=== PATIENT | male | born 1965 | race Two or more races ===

== ENCOUNTER 2016-09-16 14:00 | Inpatient (IN) | payer MEDICARE, MEDICAID ==
[~2016-09-16] VITALS: Ht 177.8 cm; Wt 75.2 kg
--- NOTE | ~2016-09-16 | PN ---
PATIENT'S NAME: DELORES JASMINE [facility] AGE: 51 Y [address] ROOM: [place] [address] LOCATION: [facility] [place] ADMIT DATE: 09/23/2016 Progress Notes DISCHARGE DATE: FAMILY PHYSICIAN: Shahab Corrales MD ATTENDING PHYSICIAN: Segundo Yadav DATE OF SERVICE: 09/27/2016 This patient had a robotic abdominoperineal resection for rectal carcinoma. He is doing fairly well. His drainage has been minimal. He accidentally pulled out his Isabel again, attempts to reinsert it with a coude were unsuccessful. Urology was consulted, and they will do a cystoscopy with insertion of the catheter at this point. He was on a soft diet, and he did not do terribly well, and I told him to stay on liquids until he felt better. His ostomy shows some superficial ischemia, but deep tissues look fine. He is passing gas through, yet not a lot of stool. His abdomen is otherwise unremarkable. LABORATORY VALUES: Electrolytes are satisfactory. White count is still elevated, but less so, 18,000; hematocrit is 43. PLAN: Plan is to allow him to get functional peristalsis, watch his white count, and today, to have Urology do cystoscopy and replacement of his Isabel catheter, which is now going to be placed the third time. MD ANTWON ALBRECHT/ema /[id number] d: 09/27/16 1300 t: 10/03/16 1818, PROGRESS NOTES
--- NOTE | ~2016-09-16 | DS ---
PATIENT'S NAME: DELORES MORROW [facility] AGE: 51 Y [address] ROOM: [address] [address] [place] [facility] [place] DATE: 09/23/2016 Discharge Summary DISCHARGE DATE: 10/01/2016 FAMILY PHYSICIAN: Shahab Corrales MD ATTENDING PHYSICIAN: Segundo Yadav DIAGNOSES: 1. Stage I rectal cancer, T2 N0. 2. Urinary retention. 3. Allergic reaction from Levaquin, which caused a rash. SUMMARY: Delores Morrow is a 51-year-old male, who was seen by Dr. Yadav on August 13, 2016, after he had a colonoscopy that revealed a very low rectal tumor. Pathology revealed moderately differentiated colonic adenocarcinoma. Dr. Ydaav discussed surgical treatment options along with further testing for staging purposes. The patient followed up on September 10, 2016, after a CT chest, abdomen, and pelvis revealed no evidence of metastatic disease. MRI of the pelvis revealed no perirectal adenopathy with an intact muscularis mucosa and no abnormalities in the perirectal fat. Again, Dr. Yadav discussed surgical treatment options including a low anterior resection along with a laparoscopic versus robotic abdominoperineal resection. Risks, benefits, and alternatives were thoroughly discussed. The patient decided that he wanted to proceed with the robotic APR. Apparently, he has a family member with colostomy, and he thought that he would do fine with this. The patient underwent a mechanical and antibiotic bowel prep preoperatively. He presented on the morning of September 23 for the procedure. A 2 units of blood was typed and crossed preoperatively. Mefoxin 2 g IV was ordered preoperatively. The patient was taken to the operating room where a robotic abdominoperineal resection was completed. Please see Dr. Yadav's procedure note for specifics. Postoperatively, activity was allowed as tolerated. Urine output was monitored closely. Isabel was placed to dependent drainage. Lovenox was ordered for DVT prophylaxis. Mefoxin 1 g IV q.8 hours x18 hours was ordered. Dilaudid BEAD BUILDER and IV acetaminophen was ordered for pain control. He continued his home medicines of Elavil, Adderall, and Seroquel. On postop day #1, the patient was quite cantankerous. His white blood cell count was 18.0, hemoglobin 13.7. BEAD BUILDER was switched to demand only. He was started on [place]. Clear liquids were initiated. Pulmonary toiletry was encouraged. Wound ostomy continence nurse had been consulted preoperatively and they continued postoperatively with teaching. Later that day, the patient's BEAD BUILDER was completely stopped. Isabel catheter was removed, and he was advanced to a full liquid diet. On postop day #2, the patient was feeling well. White blood cell count was 20.6. He continued on full liquids. IV was saline locked. Isabel catheter had been replaced due to urinary retention. On postop day #3, white blood cell count remained at 21.9. He was afebrile. His stoma was dark but viable. He was advanced to a regular diet. The patient pulled his Isabel PATIENT'S NAME: DELORES MORROW [facility] AGE: 51 Y [address] ROOM: [place] [address] [place] [facility] [place] DATE: 09/23/2016 Discharge Summary DISCHARGE DATE: 10/01/2016 FAMILY PHYSICIAN: Shahab Corrales MD ATTENDING PHYSICIAN: Segundo Yadav catheter out himself on September 29. Dr. Oconnell was consulted and there was some difficulty replacing the Isabel. The patient subsequently had to go to the operating room for cystoscopy with replacement of the Isabel. Levaquin 500 mg IV preop was given. He subsequently developed a rash from this a couple days later. On September 29, the patient overall seemed to be improving. His white blood cell count was down to 15.9. A CT scan of the abdomen and pelvis had been obtained due to his elevated white count and the dusky stoma. This showed no free fluid, no abscess or complications. There was some patchy bilateral lung consolidation noted, also some constipation was noted. Benadryl was ordered for the rash, milk of magnesia was ordered for the constipation. On postop day #7, the patient was in good spirits. He was tolerating diet. He had changed his own colostomy appliance. His RAFAELA drain was removed. The patient and were instructed on Isabel catheter care with anticipation of him going home with it. On postop day #8, the patient was in good spirits. He was ready to go home. He had no new concerns. He was tolerating diet. He had stool out of his colostomy. Evaluation of the perineum did show that a couple sutures at the inferior aspect had pulled out and some, the remainder was intact. DISCHARGE INSTRUCTIONS: Included no restrictions on diet, no heavy lifting. He is to follow up with Dr. Yadav on October 03 at 9:45 a.m. for Isabel catheter removal. He was instructed to keep the perineum incision clean and dry, although he can shower allowing soap and water to run past the wound; he can cover as needed. I discussed with him that he may notice some drainage from the area that and that this should heal with time. Isabel care as directed. Colostomy care as directed. DISCHARGE MEDICATIONS: Include, 1. Elavil 75 mg p.o. at bedtime. 2. Prilosec 20 mg p.o. daily. 3. Seroquel 50 mg p.o. at bedtime. 4. Ultram 50 mg every 6 hours p.r.n. pain. 5. Adderall XR 30 mg p.o. daily. 6. Multivitamin 1 tablet p.o. daily. 7. Benadryl 25 to 50 mg p.o. q.6 hours as needed for itching. 8. A prescription was written for [place] 5/325 one to two p.o. q.4 hours p.r.n. pain, dispensing 30 with no refills. Final pathology results show rectal adenocarcinoma grade 2 of 3 with no metastatic carcinoma in 15 perirectal and pericolic lymph nodes. The patient will need a colonoscopy in 1 year. For specifics on day-to-day care, please refer to the hospital chart. PATIENT'S NAME: DELORES MORROW [facility] AGE: 51 Y [address] ROOM: [place] [address] [place] [facility] [place] DATE: 09/23/2016 Discharge Summary DISCHARGE DATE: 10/01/2016 FAMILY PHYSICIAN: Shahab Corrales MD ATTENDING PHYSICIAN: Segundo Yadav MATTI ARECHIGA PA-C FOR MD PANTERA NAVARROK/modl /[id number] d: 10/02/16 0427 t: 10/11/16 1454, DISCHARGE SUMMARY
--- NOTE | ~2016-09-16 | PN ---
PATIENT'S NAME: DELORES JASMINE [facility] AGE: 51 Y [address] ROOM: [place] [address] LOCATION: [facility] [place] ADMIT DATE: 09/23/2016 Progress Notes DISCHARGE DATE: FAMILY PHYSICIAN: Shahab Corrales MD ATTENDING PHYSICIAN: Segundo Yadav DATE OF SERVICE: 09/28/2016 HISTORY OF PRESENT ILLNESS: This is a patient with rectal carcinoma who had an abdominoperineal resection. He has a Pascual-Ferrer drain, which has not been draining a great deal. His ostomy is reasonable. He has some slight mucosal sloughing. He pulled out his Isabel for the second time. It was attempted to be reinserted with a coude and required the urologist to do a cystoscopy and insertion. I have spoken with the urologist and he says to keep the Isabel in for 1 week. He is on no antibiotics. He is eating fairly well. There is no large amount of stool, but gas in his ostomy. Of concern is the fact that his white count has remained elevated now at 21.3. He has a left shift. His electrolytes otherwise are unremarkable. Certainly, this elevation could have been contributed to by the manipulation yesterday in his genitourinary tract, but I feel that most probably tomorrow, he should receive a CAT scan of the abdomen and pelvis. I will relay this to Dr. Yadav. MD ANTWON ALBRECHT/ema /[id number] d: t: 09/29/16 1132, PROGRESS NOTES
--- NOTE | ~2016-09-16 | CON ---
[facility] 51 [facility] [address] ROOM: [place] [address] [place] [facility] [place]: 09/23/2016 Consultation DISCHARGE DATE: FAMILY PHYSICIAN: Shahab Corrales MD ATTENDING PHYSICIAN: Segundo Yadav DATE OF CONSULTATION: 09/27/2016 REFERRING PHYSICIAN: Delmer MORALES MD REASON FOR CONSULTATION: Urethral trauma secondary to patient pulling a Isabel catheter out and staff unable to replace catheter and the patient has urethral bleeding. The patient has status post abdominoperineal resection for rectal carcinoma. PAST MEDICAL HISTORY: ADHD. PAST SURGERY: Colonoscopy in his recent abdominoperineal resection. MEDICATIONS: At admission are: 1. Adderall. 2. Amitriptyline. 3. Antioxidants. 4. Omeprazole. 5. Seroquel. 6. Ultram. ALLERGIES: NONE. SOCIAL HISTORY: The patient is a long-time smoker. PHYSICAL EXAMINATION: GENERAL: A 51-year-old male, in no acute distress. EYES: Extraocular motion intact. EARS, NOSE, MOUTH, THROAT: No nasal or ear drainage noted. LUNGS: No respiratory distress. ABDOMEN: Benign with colostomy site. : Circumcised. Normal phallus and glans. There is some blood at the meatus. The groin area was prepped and draped in normal sterile fashion. I injected [facility]GE: 51 Y [address] ROOM: [place] [address] [place] [facility] [place]: 09/23/2016 Consultation DISCHARGE DATE: FAMILY PHYSICIAN: Shahab Corrales MD ATTENDING PHYSICIAN: Segundo Yadav lidocaine gel into the urethra. I then attempted to pass a 16-Estonian Isabel catheter and then I tried a coude catheter. It appeared to get stuck right around the bladder neck area. IMPRESSION: Urethral trauma. PLAN: Will require a cystoscopy for a catheter placement. The patient just ate, so we will have to delay the procedure until later time. MD MARY BETH CEJA/ema /[id number] d: 09/27/16 1131 t: 10/13/16 1915, CONSULTATION REPORT
--- NOTE | ~2016-09-16 | OR ---
PATIENT'S NAME: DELORES JASMINE [facility] AGE: 51 Y [address] ROOM: [address] [address] [place] [facility] [place]: 09/23/2016 OR/Procedure Report DISCHARGE DATE: FAMILY PHYSICIAN: Shahab Corrales MD ATTENDING PHYSICIAN: Segundo Yadav SURGEON: Segundo Yadav MD RADIATION THERAPY TECHNICIAN: Nona Tirado PA-C. DATE OF PROCEDURE: 09/23/2016 PREOPERATIVE DIAGNOSIS: Rectal cancer. POSTOPERATIVE DIAGNOSIS: Rectal cancer. PROCEDURE: Robotic-assisted abdominoperineal resection. FINDINGS: Tumor was seemed to be only within in lumen of the colon. There did not appear to be gross invasion on surrounding structures. ESTIMATED BLOOD LOSS: 10 mL. COMPLICATIONS: None. INDICATIONS: The patient is a 51-year-old male who had a rectal cancer. We discussed various options with the patient both LAR as well as APR and ultimately he had a cousin who had had an abdominal perineal resection and did well with this. He did not want to risk any potential complications of an anastomosis. The risks, benefits, and alternatives were discussed with the patient. Ultimately, he elected to proceed. DESCRIPTION OF PROCEDURE: The patient was taken to the operating room. He was placed supine, given IV sedation, and subsequently intubated. His abdomen and perineum were prepped with ChloraPrep as well as Betadine on the peritoneum and sterilely draped. Preoperatively, the anus was closed with a pursestring suture. A transverse incision was created just superior to the umbilicus. The abdomen was elevated, a Veress needle was inserted, and pneumoperitoneum was induced. Following this, an 8-mm robotic trocar was inserted followed by insertion of the camera. There was no injury from the initial trocar placement. Three more trocars were positioned, one in the right abdomen, one in the left abdomen, and 1 overlying his planned ostomy exit site. The one in the right abdomen was 12 mm and the other 3 were 8-mm trocars, these were all inserted under direct visualization. The robot was docked, the instruments were inserted, and the operative field targeted. We initially identified the inferior mesenteric vein and artery. This was divided along the distal branches in order to preserve blood supply to the proximal sigmoid colon. We then turned our attention, identified the ureter, PATIENT'S NAME: DELORES JASMINE [facility] AGE: 51 Y [address] ROOM: [address] [place], [place] [address] [place] [facility] [place]: 09/23/2016 OR/Procedure Report DISCHARGE DATE: FAMILY PHYSICIAN: Shahab Corrales MD ATTENDING PHYSICIAN: Segundo Yadav and extended dissection down into the pelvis. Sacral promontory was identified. The lateral peritoneal attachments were incised identifying the lateral ligaments. We continued our posterior dissection using both blunt as well as sharp dissection under direct visualization towards the toxics. We then divided the lateral ligaments with the vessel sealing device and continued our dissection down into the pelvis. The peritoneum on the anterior rectum was scored, we entered this plane taking care to avoid the prostate. The mass was palpable within the colonic lumen. We continued our dissection all the way to the levators. All blood vessel division was accomplished with the da Louie vessel sealing device. Once we had completed our dissection all the way into the pelvis to the levators, we turned our attention proximally. We planned our proximal resection site, divided the mesentery up to this point with the vessel sealer device. This was then exchanged for a robotic stapling device. Chun were placed across the proximal sigmoid colon and this was divided. Once this was divided, the operative field was inspected and it appeared hemostatic. A disk of skin was removed surrounding the trocar in the left abdomen, this was a spot that was selected by the Wound Ostomy team. This dissection was carried down into the subcutaneous tissues and to the anterior rectus sheath using electrocautery. A cruciate type incision was created, this was continued into the abdominal cavity, large enough for 2 fingers. The descending colon and proximal sigmoid colon were then delivered through this incision. The ostomy was tacked to the fascia level using interrupted 3-0 silk suture. Once this was completed, we turned our attention to the perineal dissection. An elliptical incision was created around the anus encompassing the anal sphincter, this continued through the anal sphincter up to the levators. Initially, we entered the abdominal cavity near the coccyx down posteriorly. This dissection was performed with electrocautery. Once it was extended into the abdominal cavity on all sides, the sigmoid colon was then able to be delivered, which allowed us to identify our anterior plane, this was also excised with electrocautery. We were able then to deliver our specimen, distal sigmoid colon, rectum, and anus, this was passed off as specimen. The operative field was inspected, it appeared hemostatic. We then closed our perineum in layers. We reapproximated the levators with 0 Vicryl suture, deep dermal layers with 2-0 Vicryl suture, and skin closure with 2-0 nylon sutures. We turned our attention to the abdominal wall. We again inserted our camera and inspected the abdominal cavity, it appeared hemostatic. A 15-Georgian round drain was placed within the pelvis and brought out through one of the laparoscopic incisions. The ostomy was inspected, it appeared to have no tension. Once this was completed, the pneumoperitoneum was released. The trocars were removed. The fascia of the 12-mm trocar site was approximated with 0 Vicryl suture. The drain was sewn into place with 2-0 silk suture. The skin edges of all the incisions were closed with 4-0 Monocryl suture. Sterile dressings were placed. We then matured the ostomy. The staple line was excised, and the ostomy was then matured to the skin using interrupted 3-0 Vicryl suture. An ostomy appliance PATIENT'S NAME: DELORES JASMINE [facility] AGE: 51 Y [address] ROOM: [place] [address] [place] [facility] [place]: 09/23/2016 OR/Procedure Report DISCHARGE DATE: FAMILY PHYSICIAN: Shahab Corrales MD ATTENDING PHYSICIAN: Segundo Yadav was placed. The patient was then extubated and sent to recovery in good condition. Nona Tirado was participated in the entire procedure, was necessary for retraction, aiding, and visualization. MD CLINTON NAVARROO/modl /[id number] d: 09/23/16 2354 t: 09/26/16 1503, OPERATIVE SUMMARY
--- NOTE | ~2016-09-16 | PN ---
PATIENT'S NAME: DELORES JASMINE [facility] AGE: 51 Y [address] ROOM: [place] [address] [place] [facility] [place]: 09/23/2016 Progress Notes DISCHARGE DATE: FAMILY PHYSICIAN: Shahab Corrales MD ATTENDING PHYSICIAN: Segundo Yadav DATE OF SERVICE: 09/29/2016 ADDENDUM: This patient is getting a CAT scan of his abdomen and pelvis today. His RAFAELA drain has decreasing dramatically amounts, but there is increasing amounts around his RAFAELA drain and he is probably developing a tract, and his RAFAELA drain probably should come out. His leukocytosis persists and his ostomy looks worse with more ischemia. He also had a bowel movement, which was maroon stool and this is of concern was questionable more proximal ischemia. MD ANTWON ALBRECHT/ema /[id number] d: t: 09/29/16 1153, PROGRESS NOTES
--- NOTE | ~2016-09-16 | OR ---
PATIENT'S NAME: MITALI [facility] AGE: 51 Y [address] ROOM: [place] [address] [place] [facility] [place]: 09/23/2016 OR/Procedure Report DISCHARGE DATE: FAMILY PHYSICIAN: Shahab Corrales MD ATTENDING PHYSICIAN: Segundo Yadav SURGEON: Joyce Bingham MD FRONT OFFICE AGENT: DATE OF PROCEDURE: 09/27/2016 PREOPERATIVE DIAGNOSIS: Urinary retention, inability to place Isabel catheter. POSTOPERATIVE DIAGNOSIS: Urinary retention, inability to place Isabel catheter. PROCEDURE PERFORMED: Cystoscopy, complicated Isabel catheter placement. ANESTHESIA: MAC. COMPLICATIONS: None. INDICATION FOR PROCEDURE: The patient is a 51-year-old male, who is status post robotic anterior colon resection. Postoperatively, the patient has had urinary retention, requiring Isabel catheterization. The patient pulled his Isabel out last night and staff was unable to pass Isabel. I attempted to pass Isabel unsuccessfully also. DETAILS OF PROCEDURE: After informed consent obtained, the patient was taken to the operating room. A MAC anesthetic was applied. He was placed in the dorsal lithotomy position. The groin area was prepped and draped in normal sterile fashion. Cystoscope was introduced into the urethra and bladder without difficulty. The patient was noted to have significant median lobe enlargement. I did not identify any major areas of trauma to the urethra. The bladder appeared normal other than changes from prior Isabel catheterization. A guidewire was then placed and the cystoscope was removed. I then placed a 20-Libyan [place] tip catheter over the guidewire up into the bladder. The balloon was then inflated with 20 mL of water. The bladder drained clear yellow urine. The patient tolerated the procedure well and was transferred to recovery room in good condition. JOYCE BINGHAM MD MARY BETH/modl PATIENT'S NAME: MITALI [facility] AGE: 51 Y [address] ROOM: [place] [address] [place] [facility] [place] DATE: 09/23/2016 OR/Procedure Report DISCHARGE DATE: FAMILY PHYSICIAN: Shahab Corrales MD ATTENDING PHYSICIAN: Segundo Yadav /[id number] d: 09/27/161899 t: 10/13/161917, OPERATIVE SUMMARY
[~2016-09-16 14:00] MED LIST: ADDERALL XR 3030 MG PO; ELAVIL75 MG PO; PRILOSEC20 MG PO; SEROQUEL50 MG PO; ULTRAM50 MG PO
[2016-09-23] MEDS ORDERED: THERA-VITE W/ B1 TAB PO (10:16)
--- NOTE | 2016-09-23 20:40 | NUR ---
LATE ENTRY: 1700 PATIENT AWAKE AND IN TERRIBLE PAIN 10/10. FENTANOL ADMINISTERED AT 1709. 1715 GOOD PAIN CONTROL. 1726 PATIENT GRIMACING AND RATING PAIN 8/10. REPEATED FENTANOL. 1735 PATIENT COMFORTABLE AT THIS TIME STATES PAIN IS A 2/10. 1754 [facility] PRES[facility] INITIATED. PATIENT RATES PAIN 10/10. FENTANOL REPEATED. 1803 MORPHINE FOR PAIN CONTROL 10/10. PATIENT AGGITATED. 1815 GOOD PAIN CONTROL AT THIS TIME. PATIENT IS RESTING COMFORTABLE. ART LINE WAS DISCONTINUED AND PRESSURE APPLIED UNTIL HEMASTASIS ACHIEVED. 1840 PATIENT USES [facility] FOR PAIN CONTROL HAS BEEN RATING IS A 6-7/10. 1903 POOR PAIN CONTROL AT THIS TIME AFTER PATIENT COUGHED AND REPOSITIONED. MEDICATED WITH FENTALOL. 1915 PATIENT IS STABLE. GOOD PAIN CONTROL AT THIS TIME. 1925 PATIENT IS TRANSPORTED TO MED/SURG STATES AT TIME OF TRANSFER THAT PAIN IS 1/10. O2 REMAINS AT 4 LITERS.
--- NOTE | 2016-09-24 04:25 | NUR ---
Significant Event:PT AAOX3.SLIGHTLY IRRATABLE AND VULGAR WITH STAFF AT TIMES HOEWVER CAN BE PLEASANT AT OTHER TIMES. PT ARRIVED TO FLOOR AT 2014,SURGICAL NURSE REPORTS THAT HIS STOMA HAS VENOUS INSUFFICIENCY AND WAS PALE AFTER SURGERY AND IS NOW BLACK IN COLOR. STOMA IS WARM TO TOUCH, SMALL AMOUNT OF BLOODY DRAINAGE FROM STOMA. RAFAELA DRAIN HAS 40ML OUT OF BLOOD. 3 SURGICAL SITE DRESSING C/D/I. BOWEL SOUNDS HYPOACTIVE,DENIES PASSING GAS. LEHMAN CATH IN PLACE AND PATENT. IV TO LEFT WRIST RUNNING LR AT 125ML/HR. LUNG SOUNDS CLEAR/DIMINISHED.PT HAD PRN ZOFRAN AT 2230. PT HAS MAINTAINED PAIN WITH PROVIDER NETWORK MANAGER PUMP. IS RUNNING DILAUDID 2MG CONTINOUS,2MG DEMAND WITH 10MIN LOCKOUT. PT IS ON 4L NC. STOMA HAS HAD NO CHANGE IN APPRANCE DURING SHIFT,CONTINUES TO BE BLACK IN COLOR AND WARM TO TOUCH. PT ALSO NOTED TO HAVE DRESISNG TO PERINEAL AREA THAT IS C/D/I. HAS BEEN TOLERATING SIPS OF WATER AND ICE CHIPS WELL DURING THE NIGHT. Follow up:
[2016-09-24 05:29] LABS: BASOPHIL % 0.2 %; EOSINOPHIL # 0.1 K/uL (0.0-0.5); EOSINOPHIL % 0.7 %; HEMATOCRIT 40.8 % (37.0-53.0); HEMOGLOBIN 13.7 g/dL (12.0-17.0); IMMATURE GRANULOCYTE # 0.1 K/uL (0.0-0.3); IMMATURE GRANULOCYTE % 0.3 %; LYMPHOCYTE # 2.8 K/uL (0.8-4.0); LYMPHOCYTE % 15.7 %; MCHC 33.6 gm/dL (32.0-36.5); MCV 89.3 fl (83.0-98.0); MONOCYTE # 0.9 K/uL (0.0-1.0); MPV 9.1 fl (9.4-12.4); NEUTROPHIL # (ANC) 14.1 K/uL (1.4-9.0); NEUTROPHIL % 78.1 %; NRBC % 0 /100WBC (0-0.00); PLATELET COUNT 271 K/uL (150-450); RBC 4.57 M/uL (4.00-6.00)
[2016-09-24 05:48] LABS: ANION GAP 11.9 (10.0-19.0); BLOOD UREA NITROGEN 12 mg/dL (6-24); CHLORIDE 109 mMol/L (96-110); CO2 24 mMol/L (22-32); CREATININE 0.8 mg/dL (0.6-1.3); ESTIMATED GFR (MDRD EQUATION) > 60; POTASSIUM 3.9 mMol/L (3.7-5.1); SODIUM 141 mMol/L (135-145)
--- NOTE | 2016-09-24 16:00 | NUR ---
SPOKE TO PATIENT REGARDING CM AND OUR ROLE. PATIENT DOES NOT ANTICIPATE ANY DISCHARGE NEEDS AT THIS TIME. HE IS PLANNING ON RETURNING HOME ONCE READY FOR DISCAHARGE.WILL CONT TO FOLLOW NEEDED.
--- NOTE | 2016-09-24 20:15 | NUR ---
Significant Event: Alert and oriented X 3. O2 nasal cannula at 4L. SUPERVISOR BIT AND SHANK DEPARTMENT turned off at 1557. ETCO2 continued. Isabel catheter pulled at 1550 with total of 1200 ml out this shift. SBP 90's amd 120's. HR 108 & 118. Up with 1 assist, gait belt and walker. Dressing to drain site changed. Dressing to anus changed. Zelienople given X 2, last given at 1202. Reassessment he states his pain is only at a 2. IV to right forearm with D5 1/2 NS & 20 mEq KCL infusing at 75 ml/hr. Orders to ambulate TID and PRN. Full liquid diet. NPO after midnight for procedure in the AM. Incentive spirometer at bedside. Pleasant and cooperative with cares. Small amount of bloody drainage in colostomy bag and small bloody drainage in RAFAELA drain. Follow up:
--- NOTE | 2016-09-25 04:01 | NUR ---
Significant Event:PT AAOX3.OVERALL [facility] [place] CARES AND STAFF.PT UP WITH 1 ASSIST WALKER GAITBELT.RAFAELA DRAIN HAD 40ML OF RED/BLOOD OUTPUT. COLOSTOMY NOTED TO HAVE SMALL AMOUNTS OF BLOODY OUTPUT.STOMA CONTINUES TO BE DARK IN COLOR HOWEVER IS WARM AND PLUMP TO TOUCH. PT HAD LEHMAN CATH REMOVED PRIOR SHIFT HOWEVER BECAME TACYCARDIC AND AGITATED, UPON ASSESMENT WAS FOUND TO HAVE 705ML OF URINE IN BLADDER. LEHMAN CATH WAS REINSERTED PER ORDERS.CATH IS PATENT WITH ADEQUATE OUTPUT.PT CONTINUES TO BE TACHY ABOUT 100 THROUGHT SHIFT. PRN NORCO LAST GIVEN AT 0130 (2 TABS). ON3L NC. CONTIUES TO BE ON ETCO2 MONITORING.BOWEL SOUNDS HYPOACTIVE. TAKES MEDICATION WHOLE. IV TO RIGHT WRIST RUNNING AT 7ML/HR.BED ALARMS ON AT ALL TIMES DUE TO PT BEING IMMPULSIVE. Follow up:
[2016-09-25 05:45] LABS: BASOPHIL # 0.1 K/uL (0.0-0.2); BASOPHIL % 0.3 %; EOSINOPHIL # 0.2 K/uL (0.0-0.5); EOSINOPHIL % 1.1 %; HEMATOCRIT 39.3 % (37.0-53.0); HEMOGLOBIN 13.3 g/dL (12.0-17.0); IMMATURE GRANULOCYTE # 0.1 K/uL (0.0-0.3); IMMATURE GRANULOCYTE % 0.4 %; LYMPHOCYTE # 3.1 K/uL (0.8-4.0); LYMPHOCYTE % 15.3 %; MCHC 33.8 gm/dL (32.0-36.5); MCV 88.5 fl (83.0-98.0); MONOCYTE # 1.5 K/uL (0.0-1.0); MONOCYTE % 7.2 %; MPV 9.1 fl (9.4-12.4); NEUTROPHIL # (ANC) 15.6 K/uL (1.4-9.0); NEUTROPHIL % 75.7 %; NRBC % 0 /100WBC (0-0.00); PLATELET COUNT 292 K/uL (150-450); RBC 4.44 M/uL (4.00-6.00); RDW-CV 12.6 % (11.9-14.6)
[2016-09-25 05:51] LABS: ALBUMIN 2.8 gm/dL (3.5-5.0); ANION GAP 10.8 (10.0-19.0); CALCIUM 8.6 mg/dL (8.5-10.5); CHLORIDE 106 mMol/L (96-110); CO2 26 mMol/L (22-32); CREATININE 0.8 mg/dL (0.6-1.3); ESTIMATED GFR (MDRD EQUATION) > 60; PHOSPHORUS 2.1 mg/dL (2.5-4.9); POTASSIUM 3.8 mMol/L (3.7-5.1); SODIUM 139 mMol/L (135-145)
[2016-09-25 05:52] LABS: WBC 20.6 K/uL (4.0-11.0)
[2016-09-25 05:53] LABS: BLOOD UREA NITROGEN 5 mg/dL (6-24)
--- NOTE | 2016-09-25 17:19 | NUR ---
Significant Event:PT. A/O AND COOPERATIVE TODAY. C/O ABDOMINAL AND RECTAL PAIN. RAFAELA DRAINING MAROON 50MLS FLUID. COLOSTOMY DARK RED AND DRAINING 15MLS. MAROON FLUID. LEHMAN DRAINING DARK YELLOW.UP WITH ONE ASSIST AND WALKER AND AMBULATED IN HALLWAY X2 TODAY. TELEMETRY D/C'D. O2 AT 1L PER NC. C/O GAS PAINS FREQUENTLY. IV TO RFA S/L'D. Follow up:
--- NOTE | 2016-09-26 04:37 | NUR ---
Significant Event:PT AAOX3.PLEASANT WITH STAFF AND CARES. UP IN [place] WITH STAFF TO WALK X2.WALKS WITH WALKER GAITBELT 1 STAFF ASSIST.LAST PAIN PILL GIVEN AT 031.DRESSING TO RAFAELA DRAIN CHANGED.COLOSTOMY HAS SMALL AMOUNT OF BLOODY OUTPUT. STOMA CONTINUES TO BE DARK IN COLOR HOWEVER IS WARM AND PLUMP TO TOUCH.PT IV TO RIGHT WRIST SL. LEHMAN CATH PATENT. BOWELS SOUNDS ACTIVE. PT IS PASSING GAS. USES CALL LIGHT APPROP. Follow up:
[2016-09-26 06:04] LABS: BASOPHIL # 0.1 K/uL (0.0-0.2); BASOPHIL % 0.3 %; EOSINOPHIL # 0.3 K/uL (0.0-0.5); EOSINOPHIL % 1.2 %; HEMATOCRIT 44.4 % (37.0-53.0); HEMOGLOBIN 15.6 g/dL (12.0-17.0); IMMATURE GRANULOCYTE # 0.1 K/uL (0.0-0.3); IMMATURE GRANULOCYTE % 0.6 %; LYMPHOCYTE # 2.2 K/uL (0.8-4.0); LYMPHOCYTE % 10.2 %; MCH 30.2 pg (27.0-34.0); MCHC 35.1 gm/dL (32.0-36.5); MONOCYTE # 1.4 K/uL (0.0-1.0); MONOCYTE % 6.5 %; MPV 8.9 fl (9.4-12.4); NEUTROPHIL # (ANC) 17.8 K/uL (1.4-9.0); NEUTROPHIL % 81.2 %; NRBC % 0 /100WBC (0-0.00); PLATELET COUNT 386 K/uL (150-450); RBC 5.16 M/uL (4.00-6.00); RDW-CV 12.8 % (11.9-14.6); WBC 21.9 K/uL (4.0-11.0)
--- NOTE | 2016-09-26 17:05 | NUR ---
Significant Event:PT. UP TO CHAIR/SHOWER AND HALLWAY TODAY. C/O RECTAL INCISION PAIN AND ORAL PAIN MEDS GIVEN. HAD RAFAELA DRAIN WITH CLEAR YELLOW FLUID TODAY. COLOSTOMY ONLY DRAINING MAROON SMALL AMOUNT OF FLUID. IV RWRIST. LEHMAN PATIENT AND DRAINING TEA COLORED URINE. ENCOURAGED TO DRINK MORE FLUIDS. FLATUS IN COLOSTOMY BAG. Follow up:
--- NOTE | 2016-09-27 04:58 | NUR ---
Significant Event: PATIENT IS ALERT AND ORIENTATED X4. AMBULATES WITH WALKER GB AND ONE ASSIST. AMBULATED IN HALLS X2. CO OF RECTAL PAIN NARCO GIVEN X 2. DRESSING CHANGE TO HARSHAD SITE. STOMA IS DARK IN COLOR WARM ADN PLUMP TO TOUCH. IV TO RIGHT WRIST. PULLED LEHMAN OUT WITH BALLOON INFLATED ATTEMPTED TO REINSERT PATIENT BECAME ANGRY AND TOLD ME TO STOP. MALE STAFF NOTIFIED AND WILL ATTEMPT TO REINSERT AT END OF SHIFT. Follow up:
[2016-09-27 06:01] LABS: BASOPHIL # 0.1 K/uL (0.0-0.2); BASOPHIL % 0.3 %; EOSINOPHIL # 0.8 K/uL (0.0-0.5); EOSINOPHIL % 4.2 %; HEMATOCRIT 43.3 % (37.0-53.0); HEMOGLOBIN 14.8 g/dL (12.0-17.0); IMMATURE GRANULOCYTE # 0.1 K/uL (0.0-0.3); IMMATURE GRANULOCYTE % 0.6 %; LYMPHOCYTE # 2.8 K/uL (0.8-4.0); LYMPHOCYTE % 15.1 %; MCH 29.5 pg (27.0-34.0); MCHC 34.2 gm/dL (32.0-36.5); MCV 86.3 fl (83.0-98.0); MONOCYTE # 1.4 K/uL (0.0-1.0); MONOCYTE % 7.9 %; NEUTROPHIL # (ANC) 13.2 K/uL (1.4-9.0); NEUTROPHIL % 71.9 %; NRBC % 0 /100WBC (0-0.00); PLATELET COUNT 370 K/uL (150-450); RBC 5.02 M/uL (4.00-6.00); RDW-CV 12.7 % (11.9-14.6)
[2016-09-27 06:05] LABS: WBC 18.3 K/uL (4.0-11.0)
[2016-09-27 06:13] LABS: ALBUMIN 2.6 gm/dL (3.5-5.0); BLOOD UREA NITROGEN 14 mg/dL (6-24); CALCIUM 8.6 mg/dL (8.5-10.5); CHLORIDE 102 mMol/L (96-110); CO2 28 mMol/L (22-32); ESTIMATED GFR (MDRD EQUATION) > 60; PHOSPHORUS 3.8 mg/dL (2.5-4.9); SODIUM 137 mMol/L (135-145)
--- NOTE | 2016-09-27 17:03 | NUR ---
Significant Event:Is A/O.Forgetful at times.SL in Rt.hand.Accidently pulled catheter out on noc shift & nurse unable to get back in. came this morning & he was unable to get it in so went down for cysto & insertion of catheter at 1615.Has colostomy & stoma has blk rim around it,otherwise is dk maroon.Very sm amt serosanguious drng in bag.Is passing flatus.Abd.RAFAELA drain compressed with very little drng but drsg around drain gets pretty wet with drng.Has rectal sutures.Had dilaudid IV at 1020. Follow up:
[2016-09-28 05:56] LABS: BASOPHIL # 0.1 K/uL (0.0-0.2); BASOPHIL % 0.2 %; EOSINOPHIL # 0.5 K/uL (0.0-0.5); EOSINOPHIL % 2.3 %; HEMATOCRIT 40.2 % (37.0-53.0); HEMOGLOBIN 13.8 g/dL (12.0-17.0); IMMATURE GRANULOCYTE # 0.1 K/uL (0.0-0.3); IMMATURE GRANULOCYTE % 0.7 %; LYMPHOCYTE # 2.6 K/uL (0.8-4.0); LYMPHOCYTE % 12.1 %; MCH 29.9 pg (27.0-34.0); MCHC 34.3 gm/dL (32.0-36.5); MCV 87.2 fl (83.0-98.0); MONOCYTE # 1.4 K/uL (0.0-1.0); MONOCYTE % 6.5 %; NEUTROPHIL # (ANC) 16.7 K/uL (1.4-9.0); NEUTROPHIL % 78.2 %; NRBC % 0 /100WBC (0-0.00); PLATELET COUNT 372 K/uL (150-450); RBC 4.61 M/uL (4.00-6.00); RDW-CV 12.7 % (11.9-14.6); WBC 21.3 K/uL (4.0-11.0)
--- NOTE | 2016-09-28 06:03 | NUR ---
Significant Event: Patient came back to floor at shift change from a cysto with complicated hinton placement. Refuses to walk, complains of pain, irritable,taking off his b/p cuff and 02 and stating nobody keeps him hooked up. Educated patient on post op vitals but patient refuses to leave b/p cuff on. Heart-rate has been tachy this shift 113-125. Had 450 out in urine that is tea colored. Dilaudid given IV several times and Irma, see MAR. More pleasant as shift progresses. Follow up: Continue to monitor.
[2016-09-28 06:13] LABS: ALBUMIN 2.5 gm/dL (3.5-5.0); ALK PHOS 107 IU/L (33-138); ALT 34 IU/L (12-78); ANION GAP 12.8 (10.0-19.0); AST 28 IU/L (10-40); BLOOD UREA NITROGEN 14 mg/dL (6-24); CALCIUM 8.4 mg/dL (8.5-10.5); CHLORIDE 100 mMol/L (96-110); CO2 26 mMol/L (22-32); CREATININE 0.8 mg/dL (0.6-1.3); ESTIMATED GFR (MDRD EQUATION) > 60; POTASSIUM 3.8 mMol/L (3.7-5.1); SODIUM 135 mMol/L (135-145); TOTAL BILIRUBIN 0.8 mg/dL (0.0-1.5); TOTAL PROTEIN 6.8 g/dL (6.0-8.4)
--- NOTE | 2016-09-28 11:06 | NUR ---
A-SCREENED D/T LOS S/P ANTERIOR COLON RESECTION R/T RECTAL CA. COLOSTOMY & STOMA. ABD RAFAELA DRAIN IN PLACE. 09/27 TO [facility] FOR LEHMAN INSERTION (+)FLATUS, (+)BM HT: 70 IN WT: 75.2 KG. BMI: 23.7 LABS: NA 135, K+ 3.8, GLU 113, BUN 14, BABY ATTENDANT 0.8, ALB 2.5 MEDS: DILAUDID, NICODERM, ADDERALL XR, NORCO, SEROQUEL, ELAVIL, NARCAN, ZOFRAN, PROTONIX DIET RX: REGULAR. PO INTAKE WAS 100% AFTER COLON RESECTION. PO DECLINED YESTERDAY WITH NPO STATUS AND GOING TO [facility]. EXPECT PO INTAKE TO IMPROVE POST PROCEDURE EST NUTR NEEDS: [id number] KCALS (28-32 KCALS/KG) 75-90 GM PROTEIN (1.0-1.2 GM/KG) 1 ML FLUID/KCAL D-NOT AT NUTRITION RISK AT THIS TIME; NO NUTRITION DX IDENTIFIED I-CONTINUE W/CURRENT DIET RX M/E-GOAL: PO INTAKE >/=75% FOR DURATION OF ADMIT 1)F/U PO INTAKE, GI, AND POC IN 3-5 DAYS 2)ASSIST NEEDED
--- NOTE | 2016-09-28 15:11 | NUR ---
Significant Event:Is A/O.Has been amb in [place] with walker & 1 assist.Small amt dk red drng in colostomy bag & is passing flatus.Rectal sutures.Abd RAFAELA drain compressed with very little drng in it.RAFAELA drain drsg sat.with serosanguinous drng.Had 2 [place] at 1505.Isabel drng clear lt anum urine.Is to have CT of abd/pelvis with contrast tomorrow morning.Has bright red rash on back that was not there yesterday.Lotion put on it. Follow up:
--- NOTE | 2016-09-29 04:59 | NUR ---
Significant Event: Patient alert and oriented. Rested and repositioned self in bed this shift. Ostomy with 20 ml maroon stool out this shift. Stoma is dusky with dark spots noted. RAFAELA drain with 5 ml out. [place] given x3 last at 0315. Isabel patent with 500 ml out this shift. Pleasant and cooperative with cares. Follow up: encourage activity, continue plan of care.
[2016-09-29 05:57] LABS: BASOPHIL # 0.1 K/uL (0.0-0.2); BASOPHIL % 0.3 %; EOSINOPHIL # 0.7 K/uL (0.0-0.5); EOSINOPHIL % 4.6 %; HEMATOCRIT 39.2 % (37.0-53.0); HEMOGLOBIN 13.2 g/dL (12.0-17.0); IMMATURE GRANULOCYTE # 0.1 K/uL (0.0-0.3); IMMATURE GRANULOCYTE % 0.9 %; LYMPHOCYTE # 2.6 K/uL (0.8-4.0); LYMPHOCYTE % 16.2 %; MCH 29.6 pg (27.0-34.0); MCHC 33.7 gm/dL (32.0-36.5); MCV 87.9 fl (83.0-98.0); MONOCYTE # 1.5 K/uL (0.0-1.0); MONOCYTE % 9.3 %; NEUTROPHIL # (ANC) 10.9 K/uL (1.4-9.0); NEUTROPHIL % 68.7 %; NRBC % 0 /100WBC (0-0.00); PLATELET COUNT 349 K/uL (150-450); RBC 4.46 M/uL (4.00-6.00); RDW-CV 12.5 % (11.9-14.6); WBC 15.9 K/uL (4.0-11.0)
--- NOTE | 2016-09-29 19:02 | NUR ---
Significant Event: Patient alert and oriented and cooperative with cares. Red, raised rash noted to his mid back down to his buttocks and posterior bilateral upper arms. Patient c/o itching, aloe vista applied. [place] 2 tabs given x 3 doses with the last at 1825. Isabel patent and drains dark yellow urine with 700 ml out for the shift. Patient passing flatus through his colostomy with a small amount of maroon colored drainage. Rectal incision with sutures intact. RAFAELA drain to his L) abdomen with no drainage. Ambulated in the hallway x 3 with standby assist and up in the recliner this morning. CT scan of abd/pelvis done this morning. WBC down to 15.9. Follow up: Ambulate this evening. Encourage the incentive spirometer.
--- NOTE | 2016-09-30 04:16 | NUR ---
Significant Event: A/O X 3. AMBULATED IN HALLS WITH GAITBELT, GOOD TOLERANCE, ONE ASSIST. REPOSITIONS SELF IN BED. ABDOMEN TENDER, HAD NORCO AT 0411 TAB ONE RATED PAIN AT 8. RAFAELA DRAIN WITH 2ML OUT. HAD BENADRYL 25MG FOR RASH ON BACK, UPPER ARMS ITCHING AT 1913. OSTOMY INTACT WITH SCANT LIQUID DRAINAGE. HAS SUTURES INTACT TO RECTUM. LEHMAN CATHETER EMPTIED 350ML. TEMP 100.7 AND 100.0. ENCOURAGE INCENTIVE SPIROMETER 750. Follow up:
[2016-09-30 04:51] LABS: BASOPHIL # 0.1 K/uL (0.0-0.2); BASOPHIL % 0.4 %; EOSINOPHIL # 0.6 K/uL (0.0-0.5); EOSINOPHIL % 3.6 %; HEMATOCRIT 39.6 % (37.0-53.0); HEMOGLOBIN 13.4 g/dL (12.0-17.0); IMMATURE GRANULOCYTE # 0.2 K/uL (0.0-0.3); IMMATURE GRANULOCYTE % 1.1 %; LYMPHOCYTE # 1.9 K/uL (0.8-4.0); LYMPHOCYTE % 12.1 %; MCH 29.6 pg (27.0-34.0); MCHC 33.8 gm/dL (32.0-36.5); MCV 87.4 fl (83.0-98.0); MONOCYTE # 1.3 K/uL (0.0-1.0); MONOCYTE % 8.4 %; NEUTROPHIL # (ANC) 11.8 K/uL (1.4-9.0); NEUTROPHIL % 74.4 %; NRBC % 0 /100WBC (0-0.00); PLATELET COUNT 394 K/uL (150-450); RBC 4.53 M/uL (4.00-6.00); RDW-CV 12.4 % (11.9-14.6); WBC 15.9 K/uL (4.0-11.0)
--- NOTE | 2016-09-30 19:01 | NUR ---
Significant Event:PT HAS AMBULATED IN HALLWAYS BY SELF X3 TODAY. A/O AND COOPERATIVE. C/O RECTAL PAIN AND ORAL PAIN MED GIVEN THIS AFTERNOON. UP IN RECLINER AND EATING W/O DIFFICULTY. HAS SMALL AMOUNT OF STOOL IN COLOSTOMY BAG, GRAVY CONSISTENCY AND BROWN. DR. AYALA DIGITALLY CHECK STOMA AND GOOD PINK TISSUE JUST INSIDE STOMA BUT EXTERNAL MUSCOUS MEMBRANE IS BLACK. HAS RASH ON BACK AND SHOULDERS, REFUSED BENADRYL TODAY AND WANTED TO WAIT UNTIL HS. RAFAELA DRAIN REMOVED BY DRESSING D/I. COLOSTOMY D/I. NEED LEG BAG TEACHING. LEHMAN DRAINING DARK ASIA URINE. ENCOURAGED IS. Follow up:
--- NOTE | 2016-10-01 05:41 | NUR ---
Significant Event: Pt A&Ox3. Does display pressed speech, possibly related to adderall. VS remained stable, RA. Has colostomy with output. Needs reinforced training prior to discharge--to be today. Stoma is black/bluish. saw and said it should slough off. Pt on soft diet with good appetite. PIV to R wrist, SL. Does have scattered rash on back and upper buttocks. Has PRN benadryl for it. Possibly from levaquin. Did print out information on eating habits for taking care of colostomy. Will give to pt. Follow up:
--- NOTE | 2016-10-01 09:00 | NUR ---
RECEIVED REFERRAL TO [facility]. I MEET WITH PATIENT AND HIS SPOUSE AT THE BEDSIDE AND PRESENTED TO THEM THE OPTION OF HHC BUT THEY BOTH TELL ME THAT THEY DO NOT WANT DELORES TO HAVE HHC THEY DO NOT FEEL IT IS NEEDED. 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 " PATIENT IS WANTING TO GO HOME NOW AND IS GETTING ANXIOUS THAT THE PCP HAS NOT BEEN HERE TO DISCHARGE HIM. I ASSURE HIM THAT THEY WILL BE HERE TO DISCHARGE LATER TODAY.
[2016-10-01] MEDS ORDERED: NORCO 5-325 TA1 EACH PO (11:30)
[2016-10-01] MEDS ORDERED: BACTRIM DS1 TAB PO (11:31)
[2016-10-01] MEDS ORDERED: BENADRYL25 MG PO (11:32)
--- NOTE | 2016-10-01 12:30 | NUR ---
D: Order received for the patient to be discharged to home with his . I: Dismissal instructions were prepared and reviewed with the patient then again with the at the bedside. The following information was discussed including krames teaching sheets provided: Total abdominal colectomy; discharge instructions for (use for abdominal perineal resection), Discharge instructions for caring for your indwelling urinary catheter, Emptying and cleaning your urinary catheter bag, discharge instructions for your leg bag, [place], bactrim DS, Benadryl and Preventing DVT. Reviewed follow up appointments and all new prescriptions with the patient and his . R: The patient and his both verbalized understanding of the dismissal education at the time of teaching with no further questions. P: The above information was shared with the primary nurse, charge nurse and the nurses aide that the patient dismissal education is completed. The patient is ready for discharge to the front door via wheel chair by nursing staff.
--- NOTE | 2016-10-09 16:20 | NUR ---
Post hospitalization follow up call made to patient. He reports he is doing well. Has not quesitons concerning his follow up appointments or his medications. Reports hospital stay "went well"
== END 2016-10-01 13:06 | disposition disaster alternative care site (69) | DRG 331 ==
LOC: GMSU 09-23 09:45
PROVIDERS: Physician Assistant; Surgery; ADMIT Surgery
PROC: 0DBN4ZZ Excision of Sigmoid Colon, Percutaneous Endoscopic Approach (ICD-10-PCS; principal; 2016-09-23)
PROC: 8E0W3CZ Robotic Assisted Procedure of Trunk Region, Percutaneous Approach (ICD-10-PCS; principal; 2016-09-23)
PROC: 0DBQ3ZZ Excision of Anus, Percutaneous Approach (ICD-10-PCS; principal; 2016-09-23)
PROC: 0D1N4Z4 Bypass Sigmoid Colon to Cutaneous, Percutaneous Endoscopic Approach (ICD-10-PCS; principal; 2016-09-23)
PROC: 0DTP4ZZ Resection of Rectum, Percutaneous Endoscopic Approach (ICD-10-PCS; principal; 2016-09-23)
PROC: 0T9B80Z Drainage of Bladder with Drainage Device, Via Natural or Artificial Opening Endoscopic (ICD-10-PCS; 2016-09-27)
DX: C20 Malignant neoplasm of rectum (principal); F17.210 Nicotine dependence, cigarettes, uncomplicated; F90.9 Attention-deficit hyperactivity disorder, unspecified type; R33.9 Retention of urine, unspecified
CPT/HCPCS: C9113; J0131; J0694; J1170; J1650; J1956; J2001; J2270; J2405; J3010; J3480; J7030; J7040; J7120

== ENCOUNTER → 2016-10-03 | Outpatient (CLI) | payer MEDICARE, MEDICAID ==
[~2016-10-03] MED LIST changes: +BACTRIM DS1 TAB PO; +BENADRYL25 MG PO; +NORCO 5-325 TA1 EACH PO; +THERA-VITE W/ B1 TAB PO
== END | disposition disaster alternative care site (69) ==
LOC: GRAD 11:51
DX: D72.829 Elevated white blood cell count, unspecified (principal); R50.9 Fever, unspecified; R91.8 Other nonspecific abnormal finding of lung field; Z98.890 Other specified postprocedural states
CPT/HCPCS: Q9967